=== PATIENT | female | born 1945 | race Caucasian/White ===

== ENCOUNTER → 2016-12-25 | Outpatient (CLI) | payer OTHER, BC ==
[2016-12-25 10:11] LABS: CREATININE 0.74 mg/dL (0.55-1.02)
== END ==
LOC: LAB 09:27
PROVIDERS: ATTEND Orthopaedic Surgery
DX: Z01.812 Encounter for preprocedural laboratory examination (principal)
CPT/HCPCS: 36415; 82565; 84520

== ENCOUNTER → 2017-01-22 | Outpatient (CLI) | payer OTHER, BC ==
--- NOTE | 2017-01-22 12:17 | CT ---
History: Left knee pain after knocked down by a dog with pain and swelling Study: Multi principal planner CT of the left knee without contrast Findings: There is a comminuted depressed fracture of the lateral tibial plateau. There is a moderat e joint effusion. There are small osteophytes about the intercondylar notch. There small osteophytes about the medial and lateral joint spaces. There is faint medial meniscal calcification. Impression: Depressed lateral tibial plateau fracture Reported By:
== END ==
LOC: RAD 10:28
PROVIDERS: ATTEND Orthopaedic Surgery
DX: M25.562 Pain in left knee (principal); S82.112A Displaced fracture of left tibial spine, initial encounter for closed fracture; X58.XXXA Exposure to other specified factors, initial encounter
CPT/HCPCS: 73700

== ENCOUNTER → 2017-01-30 | Outpatient (CLI) | payer OTHER, BC ==
[~2017-01-30] MED LIST: NS 100 ML IV 100 ML IV ONE
[2017-01-30 08:27] LABS: CREATININE 0.79 mg/dL (0.55-1.02)
--- NOTE | 2017-01-30 14:18 | CT ---
HISTORY: Aortic aneurysm Study: CTA chest with and without contrast Comparison: None available (prior films and reports requested with no response ) Technique: Axial pre and post-contrast images with coronal, sagittal, and 3 dimensional maximum inte nsity projection images obtained and evaluated Findings: Vascular findings: There is mild dilatation of the proximal ascending aorta maximum diameter 3.95 ce ntimeters. The remainder of the thoracic aorta is normal in caliber, slightly ectatic, but demonstra yamil no evidence for dissection or aneurysm. The origins of the great vessels are patent. The visuali zed portions of the great vessels are patent. The origins of the celiac axis SMA and renal arteries are widely patent. Nonvascular findings: No evidence for mediastinal masses, lymphadenopathy, or hilar lymphadenopathy. No pleural effusions are identified. No chest wall or axillary abnormality is identified. Those por tions of the upper abdominal organs visualized were within normal limits. Examination of the lung fi elds demonstrated no significant nodules, alveolar infiltrates, areas of consolidation, masses, [place] bronchial thickening or bronchiectasis. IMPRESSION: Minimal dilatation of the proximal ascending aorta maximum diameter 3.95 centimeters. The remainder the thoracic aorta is mildly ectatic but otherwise normal. Lungs clear Reported By:
== END ==
LOC: RAD 08:01
PROVIDERS: ATTEND Internal Medicine Interventional Cardiology
DX: I77.89 Other specified disorders of arteries and arterioles (principal); R07.89 Other chest pain; R06.02 Shortness of breath
CPT/HCPCS: 36415; 71275; 82565; 84520; A4222

== ENCOUNTER → 2017-11-13 | Outpatient (CLI) | payer OTHER, BC ==
[2017-11-13 09:49] LABS: BASOPHILS # (AUTO) 0.1 X10^3/uL (0.0-0.1); BASOPHILS % (AUTO) 1.1 % (0.2-1.0); EOSINOPHILS # (AUTO) 0.1 x10^3/uL (0.0-0.2); EOSINOPHILS % (AUTO) 1.3 % (0.9-2.9); HEMATOCRIT 38.8 % (36.0-47.0); HEMOGLOBIN 13.6 g/dL (12.0-16.0); LYMPHOCYTES # (AUTO) 2.1 X10^3/uL (1.3-2.9); LYMPHOCYTES % (AUTO) 34.7 % (21.0-51.0); MEAN CORPUSCULAR HEMOGLOBIN 31.3 pg (27.0-34.0); MEAN CORPUSCULAR HGB CONC 35.1 g/dL (33.0-35.0); MEAN CORPUSCULAR VOLUME 89.1 fL (80.0-100.0); MONOCYTES # (AUTO) 0.6 x10^3/uL (0.3-0.8); MONOCYTES % (AUTO) 9.8 % (0.0-13.0); NEUTROPHILS # (AUTO) 3.2 x10^3/uL (2.2-4.8); NEUTROPHILS % (AUTO) 53.1 % (42.0-75.0); PLATELET COUNT 135 X10^3/uL (150.0-450.0); RED BLOOD COUNT 4.35 X10^6/uL (3.5-5.4); RED CELL DISTRIBUTION WIDTH 12.1 % (11.6-16.5)
[2017-11-13 10:03] LABS: ALANINE AMINOTRANSFERASE 28 Units/L (12-78); ALBUMIN 4.2 g/dL (3.4-5.0); ALKALINE PHOSPHATASE 90 Units/L (46-116); ASPARTATE AMINO TRANSFERASE 30 Units/L (15-37); BILIRUBIN,DIRECT 0.13 mg/dL (0-0.2); BLOOD UREA NITROGEN 12 mg/dL (7-18); CALCIUM 9.4 mg/dL (8.5-10.1); CARBON DIOXIDE 28.1 mmol/L (21-32); CHLORIDE 102 mmol/L (98-107); CHOL/HDL RATIO 3.3 (0.0-5.0); CHOLESTEROL 226 mg/dL (0-200); CREATININE 0.76 mg/dL (0.55-1.02); HDL CHOLESTEROL 69 mg/dL (40-60); SODIUM 138 mmol/L (136-145); TOTAL PROTEIN 8.2 g/dL (6.4-8.2); TRIGLYCERIDES 106 mg/dL (0-150); eGFR BLACK RACES > 60 (>60); eGFR NON BLACK RACES > 60 (>60)
--- NOTE | 2017-11-13 16:29 | MRI ---
MR thoracic spine without contrast Indication: Thoracic spine pain Technique: Multiplanar multi sequence imaging through the thoracic spine without contrast. Comparison: 01/30/2017 CT angiogram chest Findings limited images through the soft tissues of the chest and upper abdomen show no unexpected ab normality. Spinal cord signal is normal. Limited images through the cervical spine show hardware in the mid cerv ical spine and degenerative change of the cervicothoracic junction. Thoracic spine shows no high-grade neural foramen narrowing although there is bilateral neural forami nal narrowing at C7-T1. There is disc degenerative change at C7 through T2. Endplate edema at T1-T2 i s noted due to the degenerative change. Hemangioma at T9 noted. Small disc bulges at T1-T2 and T2-3 cause minimal spinal canal narrowing And disc bulge at T6-T7 causes mild spinal canal narrowing Asymmetric to the right disc bulge at T8-T9 causes minimal neural foramen narrowing Circumferential disc bulge with central protrusion at T10-T11 cause mild spinal canal narrowing. Neur al foramen are patent. Central disc protrusion at T11-T12, possibly with extruded fragment seen on axial images 32 through 3 5 causes mild spinal canal narrowing without severe stenosis. The T12-L1 shows circumferential disc bulge and facet arthropathy which causes mild spinal canal narrowin g. Impression: 1. Multilevel mild disc degenerative change and a few disc protrusions and disc bulges as above causi ng mild spinal canal and neural foramen narrowing. 2. Largest disc bulges at T11-T12 with extruded fragment likely. See sagittal image 9. Reported By:
== END | disposition home or self-care (01) | DRG 552 ==
LOC: RAD 09:20
PROVIDERS: ATTEND Nurse Practitioner Family
DX: M54.6 Pain in thoracic spine (principal); I20.8 Other forms of angina pectoris; M51.35 Other intervertebral disc degeneration, thoracolumbar region; M51.24 Other intervertebral disc displacement, thoracic region
CPT/HCPCS: 36415; 72146; 80048; 80061; 80076; 85025

== ENCOUNTER 2025-03-09 16:13 | Inpatient (IN) ==
--- NOTE | 2025-03-09 17:32 | DR.GENAD ---
HPI Time Seen Time Seen by Provider: 03/09/25 17:29 PCP Primary Care Physician: Juancarlos Complaint/Symptoms Chief Complaint Doctors Comments: 79 yo F, hx of hypothyroidism, chrnoic pain, hypokalemia, no other med hx, c/o 3d of increasing weakness, accomp by body aches. Admits to headache. Also states she has had 3 episodes of vomiting in the past 24h. Denies other complaints. Chief Complaint:: Patient is complaining of generalized body aches, generalized weakness, feels like she can't get her breath, and reports hypotension at Dr Irizarry office of . She reports she received a steroid shot last week and started on Celebrex and immediately felt bad, headache and stopped on Friday. She states she did not come sooner because she is stubborn. COVID-19 Coronavirus risk:travel/contact w/high risk person: No Has patient experienced Coronavirus symptoms: No Source History Provided: Patient and Significant Other Mode of Arrival Mode of Arrival: Wheelchair Timing Onset of Chief Complaint: 03/05/25 PMH PMH Past Medical History: Yes Past Medical History: Hypothyroidism Past Medical History Comment: AAA? Past Surgical History: Yes Surgical History: Hysterectomy, Ortho Surgery and Other Past Surgical History Comment: back surgery, neck surgery, bilateral total knee Family History History of Family Medical Conditions: No Social History Does patient currently use any type of tobacco product: No Have you used tobacco products in the last 12 months: No Type of Tobacco Use: None Does any household member use tobacco: No Alcohol Use: None Do you use any recreational Drugs:: No Lives With: Spouse Lives Where: Home Travel Risk Coronavirus risk:travel/contact w/high risk person: No Has patient experienced Coronavirus symptoms: No Infectious screening In the last 2 months have you had wt loss of >10#?: NO Have you had fever, night sweats or hemotysis?: No Have you traveled outside the country in the last 6 months?: No Isolation: Standard ROS Review of Systems Constitutional: Weakness and Loss of Appetite Gastrointestinal/Abdominal: Nausea and Vomiting Neurological: Headache All Other Systems: Reviewed and Negative PE Vital Signs Vitals: Vital Signs Temperature 98.6 F Pulse Rate 63 Pulse Rate 66 Pulse Rate 59 Pulse Rate 61 Pulse Rate 60 Pulse Rate 58 Pulse Rate 61 Pulse Rate 68 Pulse Rate 61 Pulse Rate 63 Pulse Rate 62 Pulse Rate 60 Pulse Rate 59 Pulse Rate 62 Pulse Rate 74 Pulse Rate 60 Pulse Rate 62 Pulse Rate 66 Pulse Rate 68 Pulse Rate 67 Pulse Rate 67 Pulse Rate 68 Pulse Rate 67 Pulse Rate 69 Pulse Rate 70 Pulse Rate 74 Respiratory Rate 17 Respiratory Rate 19 Respiratory Rate 22 Respiratory Rate 21 Respiratory Rate 21 Respiratory Rate 30 Respiratory Rate 20 Respiratory Rate 23 Respiratory Rate 26 Respiratory Rate 26 Respiratory Rate 23 Respiratory Rate 37 Respiratory Rate 33 Respiratory Rate 33 Respiratory Rate 35 Respiratory Rate 31 Respiratory Rate 22 Respiratory Rate 28 Respiratory Rate 28 Respiratory Rate 37 Respiratory Rate 19 Respiratory Rate 29 Respiratory Rate 35 Respiratory Rate 16 Blood Pressure 114/61 Blood Pressure 126/64 Blood Pressure 130/62 Blood Pressure 133/62 Blood Pressure 137/63 Blood Pressure 161/69 Blood Pressure 143/63 Blood Pressure 124/60 Blood Pressure 117/62 Blood Pressure 117/62 Blood Pressure 119/68 Blood Pressure 121/58 Blood Pressure 137/80 O2 Sat by Pulse Oximetry 94 O2 Sat by Pulse Oximetry 97 O2 Sat by Pulse Oximetry 99 O2 Sat by Pulse Oximetry 98 O2 Sat by Pulse Oximetry 99 O2 Sat by Pulse Oximetry 100 O2 Sat by Pulse Oximetry 98 O2 Sat by Pulse Oximetry 99 O2 Sat by Pulse Oximetry 98 O2 Sat by Pulse Oximetry 98 O2 Sat by Pulse Oximetry 100 O2 Sat by Pulse Oximetry 100 O2 Sat by Pulse Oximetry 100 O2 Sat by Pulse Oximetry 100 O2 Sat by Pulse Oximetry 100 O2 Sat by Pulse Oximetry 100 O2 Sat by Pulse Oximetry 98 O2 Sat by Pulse Oximetry 98 O2 Sat by Pulse Oximetry 99 O2 Sat by Pulse Oximetry 98 O2 Sat by Pulse Oximetry 97 O2 Sat by Pulse Oximetry 98 O2 Sat by Pulse Oximetry 98 General Limitations: No Limitations General Appearance: Alert and In No Apparent Distress Head Head Exam: Normal Inspection Eyes Eye exam: Normal Appearance ENT ENT Exam: Normal Exam External Ear Exam: Normal External Inspection TM/Canal Exam: Bilateral: Normal Nose Exam: Normal Nose Exam Mouth Exam: Normal Inspection Throat Exam: Normal Inspection Neck Neck Exam: Normal Inspection Chest Chest Inspection: Normal Inspection Respiratory Respiratory Exam: Normal Lung Sounds Bilat Respiratory Exam: Bilateral: Clear to Auscultation Cardiovascular Cardiovascular Exam: Regular Rate and Normal Rhythm Abdominal Exam Abdominal Exam: Normal Inspection, Normal Bowel Sounds and Soft Extremities Extremities Exam: Normal Inspection Back Back Exam: Normal Inspection Neurologic Neurological Exam: Alert and Oriented X3 Psychiatric Psychiatric Exam: Normal Affect and Normal Mood Skin Skin Exam: Warm, Dry, Intact and Normal Color ROR Labs Reviewed Laboratory Results Reviewed?: Yes 03/09/25 17:45 03/09/25 17:45 Laboratory: WBC 23.4 X10^3/uL (3.6-10.0) H 03/09/25 17:45 RBC 4.76 X10^6/uL (3.5-5.4) 03/09/25 17:45 Hgb 14.7 g/dL (12.0-16.0) 03/09/25 17:45 Hct 42.2 % (36.0-47.0) 03/09/25 17:45 MCV 88.6 fL (80.0-100.0) 03/09/25 17:45 MCH 30.9 pg (27.0-34.0) 03/09/25 17:45 MCHC 34.9 g/dL (33.0-35.0) 03/09/25 17:45 RDW 12.4 % (11.6-16.5) 03/09/25 17:45 Plt Count 219 X10^3/uL (150.0-450.0) 03/09/25 17:45 Plt Count Comment Adequate (ADEQUATE) 03/09/25 17:45 MPV 7.2 fL (7.4-11.0) L 03/09/25 17:45 Neut % (Auto) 79.5 % (42.0-75.0) H 03/09/25 17:45 Lymph % (Auto) 12.0 % (21.0-51.0) L 03/09/25 17:45 [place] % (Auto) 8.1 % (0.0-13.0) 03/09/25 17:45 Eos % (Auto) 0.0 % (0.9-2.9) L 03/09/25 17:45 Baso % (Auto) 0.4 % (0.2-1.0) 03/09/25 17:45 Neut # (Auto) 18.6 x10^3/uL (2.2-4.8) H 03/09/25 17:45 Lymph # (Auto) 2.8 X10^3/uL (1.3-2.9) 03/09/25 17:45 [place] # (Auto) 1.9 x10^3/uL (0.3-0.8) H 03/09/25 17:45 Eos # (Auto) 0.0 x10^3/uL (0.0-0.2) 03/09/25 17:45 Baso # (Auto) 0.1 X10^3/uL (0.0-0.1) 03/09/25 17:45 Absolute Nucleated RBC 0.1 /100WBC 03/09/25 17:45 Total Counted 100 03/09/25 17:45 Neutrophils % (Manual) 86 % (39-76) H 03/09/25 17:45 Lymphocytes % (Manual) 11 % (13-43) L 03/09/25 17:45 Monocytes % (Manual) 3 % (4-9) L 03/09/25 17:45 Plt Morphology Comment Normal (NORMAL) 03/09/25 17:45 RBC Morphology Normal (NORMAL) 03/09/25 17:45 Sodium 132 mmol/L (136-145) L 03/09/25 17:45 Corrected Sodium 133 mmol/L (136-145) L 03/09/25 17:45 Potassium 3.5 mmol/L (3.5-5.1) 03/09/25 17:45 Chloride 94 mmol/L (98-107) L 03/09/25 17:45 Carbon Dioxide 26.1 mmol/L (21-32) 03/09/25 17:45 BUN 24 mg/dL (7-18) H 03/09/25 17:45 Creatinine 1.14 mg/dL (0.55-1.02) H 03/09/25 17:45 Est GFR (MDRD) Af Amer 59 (>60) 03/09/25 17:45 Est GFR (MDRD) Non-Af 49 (>60) L 03/09/25 17:45 Glucose 125 mg/dL (65-99) H 03/09/25 17:45 Calcium 9.6 mg/dL (8.5-10.1) 03/09/25 17:45 Corrected Calcium TNP 03/09/25 17:45 Total Bilirubin 1.70 mg/dL (0.2-1.0) H 03/09/25 17:45 AST 27 Units/L (15-37) 03/09/25 17:45 ALT 29 Units/L (12-78) 03/09/25 17:45 Alkaline Phosphatase 95 Units/L (46-116) 03/09/25 17:45 Troponin I High Sens 25.7 ng/L (4.0-60.0) 03/09/25 19:39 Total Protein 9.0 g/dL (6.4-8.2) H 03/09/25 17:45 Albumin 3.8 g/dL (3.4-5.0) 03/09/25 17:45 Globulin 5.2 g/dL (2.5-4.5) H 03/09/25 17:45 Albumin/Globulin Ratio 0.7 Ratio (1.1-2.1) L 03/09/25 17:45 Lipase 20 Units/L (16-77) 03/09/25 17:45 Specimen Type Clean catch urine 03/09/25 17:22 Urine Color Alysha (YELLOW) 03/09/25 17:22 Urine Appearance Cloudy (CLEAR) 03/09/25 17:22 Urine pH 6.0 (5.0 - 8.0) 03/09/25 17:22 Ur Specific [place] 1.025 (1.000-1.030) 03/09/25 17:22 Urine Protein 2+ (NEGATIVE) 03/09/25 17:22 Urine Glucose (UA) Negative (NEGATIVE) 03/09/25 17:22 Urine Ketones 3+ (NEGATIVE) 03/09/25 17:22 Urine Blood 2+ (NEGATIVE) 03/09/25 17:22 Urine Nitrite Negative (NEGATIVE) 03/09/25 17:22 Urine Bilirubin Negative (NEGATIVE) 03/09/25 17:22 Urine Urobilinogen Normal (NORMAL) 03/09/25 17:22 Ur Leukocyte Esterase 2+ (NEGATIVE) 03/09/25 17:22 Urine RBC 5-10 /HPF (0-3) A 03/09/25 17:22 Urine WBC 20-30 /HPF (0-5) A 03/09/25 17:22 Ur Squamous Epith Cells Rare /HPF (NEGATIVE) 03/09/25 17:22 Ur Renal Epithelial Cell Few /HPF (NEGATIVE) 03/09/25 17:22 Urine Bacteria 3+ /HPF (NEGATIVE) 03/09/25 17:22 Ur Culture Indicated? Yes/culture set up 03/09/25 17:22 SARS-CoV-2 (PCR) Negative (NEGATIVE) 03/09/25 17:32 Influenza Type A (PCR) Negative (NEGATIVE) 03/09/25 17:32 Influenza Type B (PCR) Negative (NEGATIVE) 03/09/25 17:32 RSV (PCR) Negative (NEGATIVE) 03/09/25 17:32 Opioid Opioid Risk Tool Age (Eulalio box if 16-45): No History of Preadolescent Sexual Abuse: No Total: 0 Total Score Risk Category: Low Risk Copyright: Gera EID predicting aberrant behaviors Discharge Plan Diagnosis Discharge Problem: Acute pyelonephritis Discharge Plan Patient Disposition: ADMITTED INPATIENT Condition: Stable Prescriptions: No Action cyclobenzaprine 10 mg Tablet 10 mg PO TID PRN meloxicam 15 mg Tablet 15 mg PO QDAY potassium chloride 10 mEq Tablet Extended Release 10 meq PO QDAY levothyroxine 75 mcg Tablet 75 mcg PO QDAY ibuprofen 200 mg Tablet 200 mg PO Q6H PRN gabapentin 300 mg Capsule 300 mg PO TID PRN Health Concerns: Post Hospitalization: new medications and changes needed to prevent readmission or further decline. Pt educated and given instructions on all concerns. Plan of Treatment: Continue with present treatment and follow up plan. Pt is to keep follow up appointment as instructed and take medications as ordered. Orders to Discharge Patient Discharge Orders: Transfer (Routine); Ordered 03/09/25 Ordered By: Renny Ramsay Follow ups/Referrals Follow ups/Referrals: Jonny Bauer [Primary Care Provider, MEDICAL] - 3 days Instructions Stand Alone Forms: Find Help Web Site, Post Hospital Follow Up Care Print Language: [place] ADDITIONAL NOTES Additional Notes Additional Notes: Spoke with Dr Johnson who accepts admission at this time.
[2025-03-09] MEDS: NS 1,000 ML IV 1,000 ML IV ONE (17:41)
[2025-03-09] MEDS: ZOFRAN INJ 4 MG VIAL IVP ONE (17:42)
[2025-03-09] MEDS: MORPHINE SULFATE INJ 4 MG IVP ONE (17:42)
[2025-03-09 18:01] LABS: MEAN PLATELET VOLUME 7.2 fL (7.4-11.0)
[2025-03-09 18:10] LABS: RED CELL DISTRIBUTION WIDTH 12.4 % (11.6-16.5)
[2025-03-09 18:13] LABS: BLOOD/HEMOGLOBIN,URINE 2+ (NEGATIVE); LEUKOCYTE ESTERASE ,URINE 2+ (NEGATIVE); NITRITES,URINE NEGATIVE (NEGATIVE)
[2025-03-09 18:15] LABS: APPEARANCE,URINE CLOUDY (CLEAR)
[2025-03-09 18:21] LABS: COR NA(FOR HYPERGLY) 133 mmol/L (136-145); CREATININE 1.14 mg/dL (0.55-1.02); eGFR NON BLACK RACES 49 (>60)
[2025-03-09 18:24] LABS: SQUAMOUS EPITHELIAL CELL,UR RARE /HPF (NEGATIVE)
--- NOTE | 2025-03-09 18:38 | EKG ---
Test Reason : chest pain Blood Pressure : */* mmHG Vent. Rate : 65 BPM Atrial Rate : 65 BPM P-R Int : 178 ms QRS Dur : 88 ms QT Int : 392 ms P-R-T Axes : 32 -7 3 degrees QTc Int : 407 ms Normal sinus rhythm Minimal voltage criteria for LVH, may be normal variant ( R in aVL ) Cannot rule out Anterior infarct , age undetermined Nonspecific T wave abnormality Abnormal ECG No previous ECGs available Confirmed by Dinh Boss MD ([id number]) on 03/10/2025 7:23:27 AM Referred By: Confirmed By: Dinh Boss MD
[2025-03-09 18:44] LABS: PLATELET MORPHOLOGY COMMENT NORMAL (NORMAL)
--- NOTE | 2025-03-09 20:27 | CT ---
EXAM: CT ABDOMEN AND PELVIS WITH CONTRAST HISTORY: RUQ ABD PAIN; COMPARISON: CT 03/24/2024. TECHNIQUE: Axial CT images were obtained through the abdomen and pelvis after the intravenous administration of contrast. Coronal reformatted images were included. Informed written consent was obtained prior to contrast administration. All CT scans at this facility use dose modulation, iterative reconstruction, and/or weight based dosing when appropriate to reduce radiation dose to as low as reasonably achievable. FINDINGS: LOWER THORAX: Bibasilar atelectasis. ABDOMEN: LIVER: Within normal limits. GALLBLADDER: Surgically absent. SPLEEN: Within normal limits. PANCREAS: Within normal limits. KIDNEYS: Left perinephric inflammatory stranding. Scattered patchy areas of hypoenhancement involving the left renal cortex. No hydronephrosis of either kidney. The right kidney is normal in appearance. ADRENAL GLANDS: Within normal limits. GI TRACT: Colonic diverticulosis without associated inflammatory changes. No evidence of bowel obstruction. LYMPH NODES: No abnormally enlarged nodes. VESSELS: Mild atherosclerotic calcifications of the abdominal aorta and branching vessels. No aneurysmal dilatation of the abdominal aorta. PERITONEUM / RETROPERITONEUM: No free intraperitoneal air or free fluid. PELVIS: BLADDER: Within normal limits. GENITALS: Prior hysterectomy. BONES: No acute osseous abnormality. Posterior stabilization hardware spans L3-S1. IMPRESSION: 1. Findings are suspicious for left-sided pyelonephritis. 2. Colonic diverticulosis. THIS IS AN ELECTRONICALLY VERIFIED FINAL REPORT 03/09/2025 8:24 PM - Electronically signed by Jaylon Patel MD
[2025-03-09] MEDS: ROCEPHIN VIAL 1 GRAM 1 G in NS 100 ML IV 100 ML IVP ONE (20:44)
[2025-03-09] MEDS: ROCEPHIN VIAL 1 GRAM IVP ONE (20:50)
[2025-03-09] MEDS: ROCEPHIN VIAL 1 GRAM 1 G in NS 100 ML IV 100 ML IV SCH (21:55)
[2025-03-09] MEDS ORDERED: TYLENOL 325 MG TAB PO PRN (22:33)
[2025-03-09] MEDS ORDERED: ADVIL TAB 200 MG PO PRN (22:33)
[2025-03-09] MEDS ORDERED: NORCO 5/325 MG TAB PO PRN (22:33)
[2025-03-09] MEDS ORDERED: MORPHINE SULFATE INJ 2 MG INJ IVP PRN (22:33)
[2025-03-09] MEDS ORDERED: ZOFRAN TAB 4 MG PO PRN (22:33)
[2025-03-09] MEDS ORDERED: ULTRAM PO PRN (22:33)
[2025-03-09] MEDS ORDERED: NS 1,000 ML IV 1,000 ML ONE (22:37)
[2025-03-09 22:51] VITALS: BMI 30.2
[2025-03-09] MEDS: NS 1,000 ML IV 1,000 ML IV SCH (22:51)
[2025-03-09] MEDS: ZOFRAN INJ 4 MG VIAL IVP PRN (22:52)
[2025-03-09] MEDS: CONSULT PHARMACY - POTASSIUM & MAGNESIUM XX SCH (22:53)
[2025-03-09] MEDS: OMNIPAQUE 350 mg/mL 100 mL BTL 100 ML ONE (22:53)
[2025-03-09] MEDS ORDERED: MOBIC TAB 15 MG PO PRN (22:58)
[2025-03-09] MEDS ORDERED: FLEXERIL TAB 10 MG PO PRN (22:58)
[2025-03-09] MEDS: NEURONTIN CAP 300 MG PO SCH (22:58)
[2025-03-09] MEDS: FLEXERIL TAB 10 MG PO SCH (22:59)
[2025-03-09] MEDS ORDERED: K-DUR TAB 20 MEQ PO SCH (23:00)
[2025-03-10] MEDS ORDERED: NS 250 ML IV 250 ML IV ONE (00:06)
[2025-03-10] MEDS: NS 250 ML IV 250 ML IV PRN (00:10)
[2025-03-10] MEDS: K-RIDER 10 MEQ/100 ML WATER 10 MEQ/100 ML BAG IV SCH (00:12)
[2025-03-10 06:55] LABS: MEAN PLATELET VOLUME 8.2 fL (7.4-11.0); RED CELL DISTRIBUTION WIDTH 12.6 % (11.6-16.5)
[2025-03-10 07:05] LABS: COR CA(FOR HYPOALB) 9.1 mg/dL (8.5-10.1); CREATININE 0.83 mg/dL (0.55-1.02); eGFR NON BLACK RACES > 60 (>60)
[2025-03-10] MEDS ORDERED: CONSULT PHARMACY - POTASSIUM & MAGNESIUM XX SCH (08:00)
[2025-03-10] MEDS: KLOR-CON 10 MEQ TAB PO SCH (08:43)
[2025-03-10] MEDS ORDERED: MOBIC TAB 15 MG PO SCH (09:00)
[2025-03-10] MEDS ORDERED: PHARMACY CONSULT XX SCH (09:00)
[2025-03-10] MEDS: K-DUR TAB 20 MEQ PO SCH (09:10)
[2025-03-10] MEDS: MAG-OX TAB PO SCH (09:11)
[2025-03-10] MEDS: LOVENOX INJ 40 MG SYR SC SCH (09:12)
--- NOTE | 2025-03-10 10:46 | DR.H&P ---
H&P History & Physical for Day of: H&P Date: 03/10/25 Chief Complaint Chief Complaint: generalized weakness chills History of Present Illness History of Present Illness: Patient is a 79-year-old female with a past medical history of hypothyroidism. She reports that for the past day she was feeling weak and having chills. She felt very fatigued and was having body aches. Labs/imaging: WBC 16.4, hemoglobin 11.9, platelets 173, sodium 136, potassium 3.5, creatinine 0.83, glucose 101, UA consistent with infection, urine culture pending, blood culture pending, CT abdomen pelvis was obtained revealed a left pyelonephritis. Patient was admitted for acute pyelonephritis. She was started on IV antibiotics Rocephin. IV fluids normal saline at 125 mL/h. Home medications were resumed. Otherwise continue with current treatment plan. Continue closely monitor and follow-up labs/imaging. Past Medical History Past Medical History: Hypothyroidism Past Surgical History Surgical History: Hysterectomy and Ortho Surgery Family History Family Medical History: Coronary Artery Disease and Sudden Cardiac Social History Does patient currently use any type of tobacco product: No Have you used tobacco products in the last 12 months: No Type of Tobacco Use: None Does any household member use tobacco: No Alcohol Use: None Drug Use: None Medications Home Medications: Home Medications Medication Instructions Recorded Confirmed Type cyclobenzaprine 10 mg tablet 10 mg PO TID PRN 03/09/25 03/09/25 History docusate sodium 50 mg capsule 100 mg PO QDAY 03/09/25 03/09/25 History (Stool Softener) gabapentin 300 mg capsule 300 mg PO TID PRN 03/09/25 0 03/09/25 History ibuprofen 200 mg tablet 200 mg PO Q6H PRN 03/09/25 0 03/09/25 History levothyroxine 75 mcg tablet 75 mcg PO QDAY 03/09/25 History meloxicam 15 mg tablet 15 mg PO QDAY PRN 03/09/25 0 03/09/25 History potassium chloride 10 mEq 10 meq PO QDAY 03/09/2502/22 History tablet,extended release Allergies Allergies Allergy/AdvReac Type Severity Reaction Status Date / Time Sulfa (Sulfonamide Allergy Verified 03/09/25 16:37 Antibiotics) (SULFA) Labs 03/10/25 05:57 03/10/25 05:57 Labs: 03/09/25 17:22 Urine,Clean Catch Urine Culture - Preliminary Laboratory WBC 16.4 X10^3/uL (3.6-10.0) H 03/10/25 05:57 RBC 3.82 X10^6/uL (3.5-5.4) 03/10/25 05:57 Hgb 11.9 g/dL (12.0-16.0) L D 03/10/25 05:57 Hct 33.7 % (36.0-47.0) L 03/10/25 05:57 MCV 88.4 fL (80.0-100.0) 03/10/25 05:57 MCH 31.2 pg (27.0-34.0) 03/10/25 05:57 MCHC 35.3 g/dL (33.0-35.0) H 03/10/25 05:57 RDW 12.6 % (11.6-16.5) 03/10/25 05:57 Plt Count 173 X10^3/uL (150.0-450.0) 03/10/25 05:57 Plt Count Comment Adequate (ADEQUATE) 03/09/25 17:45 MPV 8.2 fL (7.4-11.0) 03/10/25 05:57 Neut % (Auto) 76.1 % (42.0-75.0) H 03/10/25 05:57 Lymph % (Auto) 12.1 % (21.0-51.0) L 03/10/25 05:57 [place] % (Auto) 11.3 % (0.0-13.0) 03/10/25 05:57 Eos % (Auto) 0.1 % (0.9-2.9) L 03/10/25 05:57 Baso % (Auto) 0.4 % (0.2-1.0) 03/10/25 05:57 Neut # (Auto) 12.5 x10^3/uL (2.2-4.8) H 03/10/25 05:57 Lymph # (Auto) 2.0 X10^3/uL (1.3-2.9) 03/10/25 05:57 [place] # (Auto) 1.8 x10^3/uL (0.3-0.8) H 03/10/25 05:57 Eos # (Auto) 0.0 x10^3/uL (0.0-0.2) 03/10/25 05:57 Baso # (Auto) 0.1 X10^3/uL (0.0-0.1) 03/10/25 05:57 Absolute Nucleated RBC 0.0 /100WBC 03/10/25 05:57 Total Counted 100 03/09/25 17:45 Neutrophils % (Manual) 86 % (39-76) H 03/09/25 17:45 Lymphocytes % (Manual) 11 % (13-43) L 03/09/25 17:45 Monocytes % (Manual) 3 % (4-9) L 03/09/25 17:45 Plt Morphology Comment Normal (NORMAL) 03/09/25 17:45 RBC Morphology Normal (NORMAL) 03/09/25 17:45 Sodium 136 mmol/L (136-145) 03/10/25 05:57 Corrected Sodium TNP 03/10/25 05:57 Potassium 3.5 mmol/L (3.5-5.1) 03/10/25 05:57 Chloride 101 mmol/L (98-107) 03/10/25 05:57 Carbon Dioxide 26.5 mmol/L (21-32) 03/10/25 05:57 BUN 20 mg/dL (7-18) H 03/10/25 05:57 Creatinine 0.83 mg/dL (0.55-1.02) 03/10/25 05:57 Est GFR (MDRD) Af Amer > 60 (>60) 03/10/25 05:57 Est GFR (MDRD) Non-Af > 60 (>60) 03/10/25 05:57 Glucose 101 mg/dL (65-99) H 03/10/25 05:57 Calcium 8.1 mg/dL (8.5-10.1) L 03/10/25 05:57 Corrected Calcium 9.1 mg/dL (8.5-10.1) 03/10/25 05:57 Magnesium 1.8 mg/dL (2.0-2.9) L 03/10/25 05:57 Total Bilirubin 0.80 mg/dL (0.2-1.0) 03/10/25 05:57 AST 20 Units/L (15-37) 03/10/25 05:57 ALT 21 Units/L (12-78) 03/10/25 05:57 Alkaline Phosphatase 84 Units/L (46-116) 03/10/25 05:57 Troponin I High Sens 25.7 ng/L (4.0-60.0) 03/09/25 19:39 Total Protein 6.8 g/dL (6.4-8.2) 03/10/25 05:57 Albumin 2.7 g/dL (3.4-5.0) L 03/10/25 05:57 Globulin 4.1 g/dL (2.5-4.5) 03/10/25 05:57 Albumin/Globulin Ratio 0.7 Ratio (1.1-2.1) L 03/10/25 05:57 Lipase 20 Units/L (16-77) 03/09/25 17:45 Specimen Type Clean catch urine 03/09/25 17:22 Urine Color Alysha (YELLOW) 03/09/25 17:22 Urine Appearance Cloudy (CLEAR) 03/09/25 17:22 Urine pH 6.0 (5.0 - 8.0) 03/09/25 17:22 Ur Specific [place] 1.025 (1.000-1.030) 03/09/25 17:22 Urine Protein 2+ (NEGATIVE) 03/09/25 17:22 Urine Glucose (UA) Negative (NEGATIVE) 03/09/25 17:22 Urine Ketones 3+ (NEGATIVE) 03/09/25 17:22 Urine Blood 2+ (NEGATIVE) 03/09/25 17:22 Urine Nitrite Negative (NEGATIVE) 03/09/25 17:22 Urine Bilirubin Negative (NEGATIVE) 03/09/25 17:22 Urine Urobilinogen Normal (NORMAL) 03/09/25 17:22 Ur Leukocyte Esterase 2+ (NEGATIVE) 03/09/25 17:22 Urine RBC 5-10 /HPF (0-3) A 03/09/25 17:22 Urine WBC 20-30 /HPF (0-5) A 03/09/25 17:22 Ur Squamous Epith Cells Rare /HPF (NEGATIVE) 03/09/25 17:22 Ur Renal Epithelial Cell Few /HPF (NEGATIVE) 03/09/25 17:22 Urine Bacteria 3+ /HPF (NEGATIVE) 03/09/25 17:22 Ur Culture Indicated? Yes/culture set up 03/09/25 17:22 SARS-CoV-2 (PCR) Negative (NEGATIVE) 03/09/25 17:32 Influenza Type A (PCR) Negative (NEGATIVE) 03/09/25 17:32 Influenza Type B (PCR) Negative (NEGATIVE) 03/09/25 17:32 RSV (PCR) Negative (NEGATIVE) 03/09/25 17:32 Review of Systems Constitutional: Chills and Weakness Eyes: No Symptoms Reported ENT: No Symptoms Reported Respiratory: No Symptoms Reported Cardiovascular: No Symptoms Reported Gastrointestinal: No Symptoms Reported Genitourinary: No Symptoms Reported Musculoskeletal: No Symptoms Reported Skin: No Symptoms Reported Neurological: No Symptoms Reported Physical Exam Vital Signs: Vital Signs Temperature 98.9 F Temperature 98.8 F Pulse Rate [Brachial] 58 Pulse Rate [Brachial] 57 Respiratory Rate 19 Respiratory Rate 17 Blood Pressure [Right Arm] 119/55 Blood Pressure [Right Arm] 119/58 O2 Sat by Pulse Oximetry 97 O2 Sat by Pulse Oximetry 97 Oriented: Normal Eyes: Normal Ear: Normal Nose: Normal Throat: Normal Respiratory: Clear Throughout Cardiovascular: Normal : Normal Auscultation: Bowel Sounds: Normal Palpation: Normal Tenderness: Normal Skin: Normal Musculoskeletal: Normal Psychiatric: Normal Mood Description: Calm and Appropriate Affect: Normal Speech Pattern: Clear and Appropriate Assessment/Plan (1) Acute pyelonephritis: Status: Acute Plan: Continue IV antibiotics and IV fluids. Urine culture pending Review H&P Reviewed: Yes Patient was examined?: Yes
[2025-03-10] MEDS: NEURONTIN CAP 300 MG PO PRN (18:35)
[2025-03-10] MEDS ORDERED: COLACE CAP 100 MG PO ONE (19:20)
[2025-03-10] MEDS: COLACE CAP 100 MG PO SCH (20:20)
[2025-03-11 04:11] VITALS: RESP 18
[2025-03-11 06:19] LABS: MEAN PLATELET VOLUME 7.6 fL (7.4-11.0); RED CELL DISTRIBUTION WIDTH 12.9 % (11.6-16.5)
[2025-03-11 06:37] LABS: COR CA(FOR HYPOALB) 9.3 mg/dL (8.5-10.1); CREATININE 0.64 mg/dL (0.55-1.02); eGFR NON BLACK RACES > 60 (>60)
[2025-03-11 08:05] VITALS: BP 128/62; PULSE 45; TEMP 98.1; O2SAT 96
== END 2025-03-11 11:00 | disposition home or self-care (01) | DRG 690 ==
LOC: ER 16:13 → MED/SURG 21:48
PROVIDERS: ADMIT Family Medicine; ATTEND Internal Medicine
DX: N10 Acute pyelonephritis; Z03.818 Encounter for observation for suspected exposure to other biological agents ruled out; R27.8 Other lack of coordination; B96.29 Other Escherichia coli [E. coli] as the cause of diseases classified elsewhere; R10.11 Right upper quadrant pain; R51.9 Headache, unspecified; E83.51 Hypocalcemia; K57.30 Diverticulosis of large intestine without perforation or abscess without bleeding; E03.8 Other specified hypothyroidism; M62.81 Muscle weakness (generalized); Z29.89 Encounter for other specified prophylactic measures; Z16.29 Resistance to other single specified antibiotic; R07.89 Other chest pain; Z16.11 Resistance to penicillins; R94.31 Abnormal electrocardiogram [ECG] [EKG]; E80.6 Other disorders of bilirubin metabolism; E87.1 Hypo-osmolality and hyponatremia; Z16.23 Resistance to quinolones and fluoroquinolones; E83.42 Hypomagnesemia